=== PATIENT | male | born 1955 | race Hispanic/Latino ===

== ENCOUNTER 2017-04-11 07:32 | Day surgery (SDC) | payer BC ==
[~2017-04-11] VITALS: Ht 167.6 cm; Wt 77.1 kg
[~2017-04-11 07:32] MED LIST: IBUP-2353 PO
[2017-04-11 08:10] VITALS: BP 115/70
[2017-04-11] MEDS ORDERED: SODIUM CHLORIDE 0.9% 1000ML 1,000 ML IV ONE (08:53)
[2017-04-11] MEDS ORDERED: MEPERIDINE-PF 50 MG/ML SYG ONE ×2 (10:54→11:06)
[2017-04-11] MEDS ORDERED: MIDAZOLAM HCL 1 MG/ML 2ML VIAL ONE ×2 (10:55→11:05)
[2017-04-11 11:20] VITALS: BP 118/63
== END 2017-04-11 12:10 ==
LOC: ENDO 07:32 → DAH 07:32 → ENDO 12:10
PROVIDERS: ATTEND Internal Medicine Gastroenterology
DX: Z12.11 Encounter for screening for malignant neoplasm of colon (principal); Z68.35 Body mass index [BMI] 35.0-35.9, adult; F17.210 Nicotine dependence, cigarettes, uncomplicated
CPT/HCPCS: 45378; A4606; J2175 ×2; J2250 ×2; J7030; 99152; 99153